=== PATIENT | female | born 1960 | race Caucasian/White ===

== ENCOUNTER 2019-02-14 22:15 | Emergency (ER) | payer OTHER ==
[~2019-02-14] VITALS: Ht 160 cm; Wt 89.7 kg
[~2019-02-14 22:15] MED LIST: LISI-313 PO; OMEP20CA16 PO
[2019-02-14 22:23] VITALS: Ht 160 cm; Wt 89.7 kg
[2019-02-15] MEDS ORDERED: TETRACAINE 0.5% 4 ML OPH LEFT EYE ONE (01:00)
[2019-02-15] MEDS ORDERED: FLUORESCEIN STRIP LEFT EYE ONE (01:30)
--- NOTE | 2019-02-15 02:01 | ERD ---
ER Documentation Chief Complaint Chief Complaint pt placed a skin tag remover medication" in L eye yesterday HPI 58-year-old female with no reported past medical surgical history who presents with complaint of left eye itchiness and redness yesterday. Patient states she was applying a [place] made medication for skin tags under her left eye when she inadvertently placed drop in left eye. Since that time has been having worsening itching and redness to the left eye. Irrigated eye with sterile eye rinse following injury which she states made symptoms worse. She denies any vision changes, blurry vision, double vision, bleeding from the area surrounding the eye. She otherwise is without complaint. ROS All systems reviewed and are negative except as per history of present illness. Medications Home Meds Active Scripts Polymyxin B Sulfate-TMP* (Polymyxin B-TMP Eye Drops*) 10 Ml Drops, 2 DROP LEFT EYE QID for 7 Days, EA Prov:ADI WRIGHT PA-C 02/15/19 Reported Medications Lisinopril* (Lisinopril*) 5 Mg Tablet, 5 MG PO DAILY, #30 TAB 12/07/18 Omeprazole* (Omeprazole*) 20 Mg Capsule.dr, 20 MG PO DAILY, #30 CAP 12/07/18 Allergies Allergies: Coded Allergies: No Known Drug Allergy (Verified Allergy, Unknown, 12/07/18) PMhx/Soc History of Surgery: No Anesthesia Reaction: No Hx Neurological Disorder: No Hx Respiratory Disorders: No Hx Cardiac Disorders: Yes (PALPITATIONS) Hx Psychiatric Problems: No Hx Miscellaneous Medical Probl: Yes (HTN, CHOLESTEROL) Hx Alcohol Use: No Hx Substance Use: No Hx Tobacco Use: No Smoking Status: Never smoker FmHx Family History: No diabetes, No coronary disease, No other Physical Exam Vitals Vital Signs Date Temp Pulse Resp B/P (MAP) Pulse Ox O2 O2 Flow FiO2 Time Delivery Rate 02/14/19 98.3 81 16 174/86 97 22:23 (115) Physical Exam I have reviewed the triage vital signs. Const: Well nourished, well developed, appears stated age Eyes: PERRL, no conjunctival injection Eye Exam w/ slit lamp: Visual Acuity: unchanged Visual [place]: Intact in all four quadrants bilaterally Lac ducts/glands: No swelling Lids w/ evertion: Normal, no foreign body, no laceration Conj/[place]: erythematous, negative Fluorescein/Rambo's Anterior Chamber: Clear Retina exam: No obvious abnormality HENT: NCAT, Neck supple without meningismus CV: RRR, Warm, well-perfused extremities RESP: CTAB, Unlabored respiratory effort GI: soft, non-tender, non-distended, no masses MSK: No gross deformities appreciated Skin: Warm, dry. No rashes Neuro: grossly non focal Psych: Appropriate mood and affect. Results 24 hrs Current Medications Medications Dose Sig/Baljinder Start Time Status Last (Trade) Ordered Route PRN Stop Time Admin Dose Reason Admin Tetracaine 1 drop ONCE ONCE 02/15/19 DC 02/15/19 HCl LEFT EYE 01:00 01:40 (Tetracaine 02/15/19 01:01 0.5% Steri-Unit Zhanna) Fluorescein 1 strip ONCE ONCE 02/15/19 DC Sodium LEFT EYE 01:30 ([id number]-Z-[id number] 02/15/19 01:31 p) Procedures/MDM 58-year-old female who presents with left eye irritation and erythema after placing unknown chemically based eyedrop and inadvertently into left eye. She denies any concerning vision changes. Visual acuity intact. Given history and exam doubt corneal abrasion or ulcer, globe rupture, uveitis or any other emergent pathology of the eye. Poison control hotline called for instructions on care. All recommendations implemented including irrigation, castro lamp fluorescein testing which did not show overt evidence of corneal abrasion (see exam note). ED course:/plan: Irrigation of the left eye, We will treat with polymyxin eyedrop, refer to eye care clinic, PMD follow-up Blood Pressure Assessment: Patient's blood pressure was elevated (>120/80) but appears stable without evidence of hypertension emergency or urgency. The patient was counseled about the risks of hypertension and urged to pursue outpatient monitoring and therapy within a week with their primary care physician. DISPOSITION PLAN: We discussed follow up with the patient's primary care doctor within 24 to 48 hours. Patient counseled regarding my diagnostic impression and care plan. Prior to discharge all questions answered. Pt agrees with treatment plan and understands strict return precautions. Precautionary instructions provided including instructions to return to the ER if not improving or for any worsening or changing symptoms or concerns. Disclaimer: Inadvertent spelling and grammatical errors are likely due to EHR/dictation software use and do not reflect on the overall quality of patient care. Also, please note that the electronic time recorded on this note does not necessarily reflect the actual time of the patient encounter. Departure Diagnosis: Primary Impression: Chemical exposure of eye Condition: Stable Patient Instructions: Eye Exposure, Chemical Referrals: [facility] YOU HAVE RECEIVED A MEDICAL SCREENING EXAM AND THE RESULTS INDICATE THAT YOU DO NOT HAVE A CONDITION THAT REQUIRES URGENT TREATMENT IN THE EMERGENCY DEPARTMENT. FURTHER EVALUATION AND TREATMENT OF YOUR CONDITION CAN WAIT UNTIL YOU ARE SEEN IN YOUR DOCTORS OFFICE WITHIN THE NEXT 1-2 DAYS. IT IS YOUR RESPONSIBILITY TO MAKE AN APPOINTMENT FOR FOLOW-UP CARE. IF YOU HAVE A PRIMARY DOCTOR --you should call your primary doctor and schedule an appointment IF YOU DO NOT HAVE A PRIMARY DOCTOR YOU CAN CALL OUR PHYSICIAN REFERRAL HOTLINE AT IF YOU CAN NOT AFFORD TO SEE A PHYSICIAN YOU CAN CHOSE FROM THE FOLLOWING [facility] [address] [facility] [address] [facility] [address] [facility] [address] [facility] [address]. [facility]. [address] Additional Instructions: Call your primary care doctor TOMORROW for an appointment during the next 2-3 days.See the doctor sooner or return here if your condition worsens before your appointment time. ADI WRIGHT PA-C Feb 15, 2019 02:01
[2019-02-15] MEDS ORDERED: POLY10DR19 LEFT EYE ×2 (02:03→02:07)
[2019-02-15 02:22] VITALS: BP 145/65; PULSE 75; RESP 18
== END 2019-02-15 02:23 | disposition home or self-care (01) ==
LOC: FTE 22:15
DX: T49.5X1A Poisoning by ophthalmological drugs and preparations, accidental (unintentional), initial encounter (principal); I10 Essential (primary) hypertension
CPT/HCPCS: Z7502; Z7610; 99283

== ENCOUNTER 2019-03-20 09:10 | Day surgery (SDC) | payer OTHER ==
[~2019-03-20] VITALS: Ht 165.1 cm; Wt 87.9 kg
[~2019-03-20 09:10] MED LIST changes: +POLY10DR19 LEFT EYE
[2019-03-20 09:36] VITALS: Ht 165.1 cm; Wt 87.9 kg
[2019-03-20 10:02] VITALS: BP 155/84; PULSE 81; RESP 18
[2019-03-20] MEDS ORDERED: LIDOCAINE 2% (SDV) 5 ML INJ ONE (10:03)
[2019-03-20] MEDS ORDERED: PROPOFOL 60 ML ONE (10:03)
--- NOTE | 2019-03-20 10:03 | PREAC ---
Date/Time of Note Date/Time of Note DATE: 03/20/19 TIME: 10:01 Anesthesia Eval and Record Evaluation Time Pre-Procedure Interview DATE: 03/20/19 TIME: 10:01 Age 58 Sex female NPO: 8 hrs Preoperative diagnosis colon screening Planned procedure Colonoscopy Past Medical History Past Medical History: Includes Cardio: HTN, Dyslipidemia GI: GERD, Morbid obesity Surgery & Anesthesia Issues No known issue Meds Anticoagulation: No Beta Kymberly within 24 hr: No Reason Beta Kymberly not given: Pt. not on B-Kymberly Reported Medications Lisinopril* (Lisinopril*) 5 Mg Tablet, 5 MG PO DAILY, #30 TAB 12/07/18 Omeprazole* (Omeprazole*) 20 Mg Capsule.dr, 20 MG PO DAILY, #30 CAP 12/07/18 Discontinued Scripts Polymyxin B Sulfate-TMP* (Polymyxin B-TMP Eye Drops*) 10 Ml Drops, 2 DROP LEFT EYE QID for 7 Days, EA Prov:ADI WRIGHT PA-C 02/15/19 Meds reviewed: Yes Allergies Coded Allergies: No Known Drug Allergy (Verified Allergy, Unknown, 03/20/19) Allergies Reviewed: Yes Labs/Studies Labs Reviewed: Reviewed by anesthesiologist test: N/A Pre-procedure Exam Last vitals BP:122/67, P:78, Spo2:100%, T:98,8 Airway: Adequate mouth opening, Adequate thyromental dist Mallampati: Mallampati III Teeth: Normal Lung: Normal Heart: Normal ASA Physical Status ASA physical status: 3 Emergency: None Planned Anesthetic General/MAC: MAC Planned Pain Management Parenteral pain med Pre-operative Attestations Prior to commencing anesthesia and surgery, the patient was re-evaluated, there was verification of: *The patient's identity *The results of appropriate recent lab work and preoperative vital signs *The above evaluation not changing prior to induction *Anesthetic plan, risk benefits, alternative and complications discussed with patient/family; questions answered; patient/family understands, accepts and wishes to proceed. HOOD JIMENES MD March 20, 2019 10:03
--- NOTE | 2019-03-20 10:30 | PAC ---
Date/Time of Note Date/Time of Note DATE: 03/20/19 TIME: 10:28 Post-Anesthesia Notes Post-Anesthesia Note Last documented vital signs Vital Signs Date Temp Pulse Resp B/P (MAP) Pulse Ox O2 O2 Flow FiO2 Time Delivery Rate 03/20/19 98.2 81 18 155/84 98 Room Air 10:02 (107) Activity: WNL Respiratory function: WNL Cardiovascular function: WNL Mental status: Baseline Pain reasonably controlled: Yes Hydration appropriate: Yes Nausea/Vomiting absent: Yes Comments BP:118/67, P:78, Spo2:100%,T:98,6 HOOD JIMENES MD March 20, 2019 10:30
[2019-03-20 10:59] VITALS: BP 114/75; RESP 20
== END 2019-03-20 10:49 | disposition home or self-care (01) ==
LOC: GIL 09:10
PROVIDERS: ATTEND Internal Medicine Gastroenterology
DX: Z12.11 Encounter for screening for malignant neoplasm of colon (principal); D12.3 Benign neoplasm of transverse colon; K21.9 Gastro-esophageal reflux disease without esophagitis
CPT/HCPCS: 45385; Z7610; 88305